=== PATIENT | female | born 1945 | race Caucasian/White ===

== ENCOUNTER 2020-10-31 18:52 | Emergency (ER) | payer MEDICARE, MEDICAID ==
[~2020-10-31] VITALS: Ht 165.1 cm; Wt 95.7 kg
--- NOTE | 2020-10-31 19:21 | NUR ---
Transfer care report to Deshaun Brown .
--- NOTE | 2020-10-31 19:51 | NUR ---
LINE ESTABLISHED RF 20G, BLOOD WORK COLLECTED, SENT TO LAB.
[2020-10-31 19:57] LABS: BASOPHILS # (AUTO) 0.1 /CMM (0.0-0.2); BASOPHILS % (AUTO) 0.6 % (0.0-2.0); EOSINOPHILS % (AUTO) 1.6 % (0.0-6.0); HEMATOCRIT 41 % (33-45); HEMOGLOBIN 13.8 g/dL (11.5-14.8); LYMPHOCYTES # (AUTO) 1.6 /CMM (0.8-4.8); LYMPHOCYTES % (AUTO) 14.7 % (20.0-44.0); MEAN CORPUSCULAR HGB CONC 34 g/dl (31.0-36.0); MEAN CORPUSCULAR VOLUME 90 fL (82-100); MONOCYTES # (AUTO) 0.9 /CMM (0.1-1.30); MONOCYTES % (AUTO) 8.3 % (2.0-12.0); NEUTROPHILS # (AUTO) 7.9 /CMM (1.8-8.9); NEUTROPHILS % (AUTO) 74.8 % (43.0-81.0); PLATELET COUNT (AUTO) 271 /CMM (150-450); RED BLOOD CELL COUNT(AUTO) 4.57 MIL/uL (4.0-5.2); WHITE BLOOD COUNT (AUTO) 10.6 K/uL (4.3-11.0)
--- NOTE | 2020-10-31 20:01 | NUR ---
RADIOLOGY AT BEDSIDE
[2020-10-31 20:24] LABS: CALCIUM, SERUM 9.5 mg/dL (8.5-10.1); CARBON DIOXIDE 27 mmol/L (21-32); CHLORIDE 101 mmol/L (98-107); CREATININE 0.8 mg/dL (0.6-1.3); GLUCOSE 127 mg/dL (74-106); POTASSIUM 4.5 mmol/L (3.5-5.1); SODIUM SERUM 138 mmol/L (136-145); UREA NITROGEN, BLOOD 15 mg/dL (7-18)
[2020-10-31 20:36] LABS: ALANINE AMINOTRANSFERASE 17 U/L (12-78); ALBUMIN 4.1 g/dL (3.4-5.0); ALKALINE PHOSPHATASE 91 U/L (46-116); ASPARTATE AMINOTRANSFERASE 30 U/L (15-37); B-TYPE NATRIURETIC PEPTIDE 353 PG/ML (0-125); BILIRUBIN,DIRECT 0.1 mg/dL (0.0-0.2); BILIRUBIN,TOTAL 0.6 mg/dL (0.2-1.0); TOTAL PROTEIN, SERUM 7.8 g/dL (6.4-8.2)
[2020-10-31] MEDS ORDERED: METOPROLOL SUCCINATE 25 MG TAB.SR.24H ONE (20:57)
[2020-10-31] MEDS ORDERED: METOPROLOL SUCCINATE 25 MG TAB.SR.24H PO SCH (21:00)
[2020-10-31 21:20] VITALS: BP 131/72
--- NOTE | 2020-10-31 21:20 | NUR ---
Patient discharged to home in stable condition. Written and verbal after care instructions given. Patient verbalizes understanding of instruction. Pt provided with labs. VSS. Denies SOB and Pain. Ambulated out of ED. Picked up by family.
--- NOTE | 2020-10-31 21:20 | NUR ---
IV removed. Catheter intact and site benign. Pressure and 4x4 applied to site. No bleeding noted.
== END 2020-10-31 21:20 | disposition home or self-care (01) ==
LOC: ER 18:54
DX: I48.91 Unspecified atrial fibrillation (principal); I10 Essential (primary) hypertension
CPT/HCPCS: 36415; 71045-TC; 80048-TC; 80076-TC; 83880; 84484-TC; 85025-TC; 85730-TC

== ENCOUNTER 2021-10-11 01:13 | Emergency (ER) | payer MEDICARE, OTHER ==
[~2021-10-11] VITALS: Ht 165.1 cm; Wt 88.5 kg
--- NOTE | 2021-10-11 01:20 | NUR ---
[id number] C/O ELEVATED BP REPORTED IN THE 200S. TOOK PRESCRIBED ANTIHYPERTENSIVES QUALITY CONTROL TECH WITH MINIMAL IMPROVEMENT. PT ALERT AND ORIENTED X 4 BREATHING EVEN AND UNLABORED. PT CHANGED INTO A GOWN AND PLACED ON THE MONITOR AND PT REMAINS HYPERTENSIVE ON ASSESSMENT.
--- NOTE | 2021-10-11 01:40 | NUR ---
PT PROVIDED WITH WARM BLANKET FOR COMFORT
--- NOTE | 2021-10-11 01:40 | NUR ---
EMT AT BEDSIDE FOR EKG
--- NOTE | 2021-10-11 01:45 | NUR ---
20G IV LINE ESTABLISHED AT . PATENT AND INTACT.
[2021-10-11 02:16] LABS: BASOPHILS # (AUTO) 0.1 K/uL (0.0-0.2); BASOPHILS % (AUTO) 0.8 % (0.0-2.0); EOSINOPHILS % (AUTO) 2.9 % (0.0-6.0); HEMATOCRIT 35 % (33-45); HEMOGLOBIN 11.9 g/dL (11.5-14.8); LYMPHOCYTES # (AUTO) 1.4 K/uL (0.8-4.8); LYMPHOCYTES % (AUTO) 19.3 % (20.0-44.0); MEAN CORPUSCULAR HGB CONC 34 g/dl (31.0-36.0); MEAN CORPUSCULAR VOLUME 89 fL (82-100); MONOCYTES # (AUTO) 0.6 K/uL (0.1-1.30); MONOCYTES % (AUTO) 8.5 % (2.0-12.0); NEUTROPHILS # (AUTO) 5.1 K/uL (1.8-8.9); NEUTROPHILS % (AUTO) 68.5 % (43.0-81.0); PLATELET COUNT (AUTO) 216 K/uL (150-450); RED BLOOD CELL COUNT(AUTO) 3.96 MIL/uL (4.0-5.2); WHITE BLOOD COUNT (AUTO) 7.5 K/uL (4.3-11.0)
[2021-10-11] MEDS ORDERED: hydrALAZINE HCL IV 20 MG VIAL IV ONE (02:30)
[2021-10-11] MEDS ORDERED: hydrALAZINE HCL IV 20 MG VIAL ONE ×2 (02:36→02:37)
[2021-10-11 04:38] LABS: CALCIUM, SERUM 8.8 mg/dL (8.5-10.1); CARBON DIOXIDE 25 mmol/L (21-32); CHLORIDE 102 mmol/L (98-107); CREATININE 0.7 mg/dL (0.6-1.3); GLUCOSE 128 mg/dL (74-106); POTASSIUM 3.9 mmol/L (3.5-5.1); SODIUM SERUM 136 mmol/L (136-145); UREA NITROGEN, BLOOD 17 mg/dL (7-18)
--- NOTE | 2021-10-11 05:01 | NUR ---
CALLED GIANA FOR IMAGING READ
[2021-10-11] MEDS ORDERED: ACETAMINOPHEN 325 MG TABLET PO ONE (05:30)
[2021-10-11] MEDS ORDERED: KETOROLAC TROMETHAMINE INJ 30 MG/ML VIAL IV ONE (05:30)
[2021-10-11] MEDS ORDERED: KETOROLAC TROMETHAMINE 15 MG/ML VIAL ONE (05:36)
[2021-10-11] MEDS ORDERED: ACETAMINOPHEN 325 MG TABLET ONE (05:37)
--- NOTE | 2021-10-11 06:51 | NUR ---
Patient discharged to home in stable condition. Written and verbal after care instructions given. Patient verbalizes understanding of instruction. IV line discontinued and 2x2 and gentle pressure applied to site without incident.
[2021-10-11 06:54] VITALS: BP 141/55
== END 2021-10-11 07:18 | disposition home or self-care (01) ==
LOC: ER 01:15
DX: I10 Essential (primary) hypertension (principal); R51.9 Headache, unspecified; M19.90 Unspecified osteoarthritis, unspecified site; Z88.0 Allergy status to penicillin; Z88.8 Allergy status to other drugs, medicaments and biological substances; Z60.2 Problems related to living alone
CPT/HCPCS: 36415; 70450; 71045; 80048; 84484; 85025; 93005 ×2; 96374; 96375; 99285; J0360 ×2; J1885

== ENCOUNTER 2021-11-04 23:39 | Inpatient (IN) | payer MEDICARE, OTHER ==
[~2021-11-04] VITALS: Ht 165.1 cm; Wt 98.0 kg
--- NOTE | 2021-11-05 00:17 | NUR ---
[id number]. MID STERNAL PRESSURE NON RADIATING X 1500 FEELING SOB W/ COUGH. PATIENT ALERT AND ORIENTED X3. AMBULATORY WITH NON LABORED BREATHING. PATIENT IN BED 04 ON MONITOR AND POX.
--- NOTE | 2021-11-05 00:20 | NUR ---
AMILCAR CARBALLO AT BEDSIDE FOR EKG
--- NOTE | 2021-11-05 00:30 | NUR ---
COVID SWAB COLLECETED AND SENT TO LAB
--- NOTE | 2021-11-05 00:54 | NUR ---
XRAY AT BEDSIDE
[2021-11-05 01:13] LABS: BASOPHILS % (AUTO) 0.7 % (0.0-2.0); EOSINOPHILS % (AUTO) 2.8 % (0.0-6.0); HEMATOCRIT 37 % (33-45); HEMOGLOBIN 12.1 g/dL (11.5-14.8); LYMPHOCYTES # (AUTO) 1.3 K/uL (0.8-4.8); LYMPHOCYTES % (AUTO) 20.7 % (20.0-44.0); MEAN CORPUSCULAR HGB CONC 33 g/dl (31.0-36.0); MEAN CORPUSCULAR VOLUME 91 fL (82-100); MONOCYTES # (AUTO) 0.4 K/uL (0.1-1.30); MONOCYTES % (AUTO) 6.2 % (2.0-12.0); NEUTROPHILS # (AUTO) 4.4 K/uL (1.8-8.9); NEUTROPHILS % (AUTO) 69.6 % (43.0-81.0); PLATELET COUNT (AUTO) 238 K/uL (150-450); RED BLOOD CELL COUNT(AUTO) 4.06 MIL/uL (4.0-5.2); WHITE BLOOD COUNT (AUTO) 6.3 K/uL (4.3-11.0)
[2021-11-05 02:09] LABS: ALANINE AMINOTRANSFERASE 34 U/L (12-78); ALBUMIN 3.9 g/dL (3.4-5.0); ALKALINE PHOSPHATASE 69 U/L (46-116); ASPARTATE AMINOTRANSFERASE 25 U/L (15-37); BILIRUBIN,DIRECT 0.2 mg/dL (0.0-0.2); BILIRUBIN,TOTAL 0.6 mg/dL (0.2-1.0); CALCIUM, SERUM 8.7 mg/dL (8.5-10.1); CARBON DIOXIDE 25 mmol/L (21-32); CHLORIDE 103 mmol/L (98-107); CREATININE 0.9 mg/dL (0.6-1.3); GLUCOSE 124 mg/dL (74-106); POTASSIUM 3.9 mmol/L (3.5-5.1); SODIUM SERUM 136 mmol/L (136-145); TOTAL PROTEIN, SERUM 7.5 g/dL (6.4-8.2); UREA NITROGEN, BLOOD 12 mg/dL (7-18)
--- NOTE | 2021-11-05 02:10 | NUR ---
PT AMBULATED TO BATHROOM, STEADY GAIT NOTED
--- NOTE | 2021-11-05 02:18 | NUR ---
PT BACK IN ROOM, RECONNECTED TO MONITOR. RESTING COMFORTABLY
[2021-11-05] MEDS ORDERED: ASPIRIN 325 MG TABLET PO ONE (03:00)
[2021-11-05] MEDS ORDERED: ASPIRIN 325 MG TABLET ONE (03:10)
--- NOTE | 2021-11-05 04:03 | NUR ---
REPORT GIVEN TO NURY MCKEE FOR NICOLE
[2021-11-05 04:14] VITALS: BP 169/62
--- NOTE | 2021-11-05 04:33 | NUR ---
concreting supervisor notes Received Pt from RAFI Pinzon ER nurse. Pt arrived at the unit with ACLS protocol. Pt is alert and orientedX4. On room air. No SOB. No S/S of distress noted. Pt is able to ambulates with a steady gait. IV site at R hand# 20 is clean, intact, flushes well and SL. Tele monitor showed SR hr at 67. Oriented Pt to the room and the use of call light. Pt verbalize understanding. Safety precautions is maintained. Bed at low position, brakes locked, bed alarm is on, hob elevated, side rails upX2 and call light is within reach. Will continue to monitor. Addendum: 11/05/21 at 0708 by NURY REZA RN Belonging's was checked by ZULLY Donahue and signed by Pt.
[2021-11-05 04:40] VITALS: BP 169/62
--- NOTE | 2021-11-05 04:45 | NUR ---
RN notes During skin assessment noted left and right arm bruises, small upper R chest bruise. Pt refused to finished skin assesment. Pt refused skin pictures. explained risks and benefits. Pt stated " I have very sensitive skin and i'm taking blood thinner. No picture! I'm fine." Charge nurse is aware and informed. Will continue to monitor.
[2021-11-05] MEDS ORDERED: AZIL80TA PO (04:56)
[2021-11-05] MEDS ORDERED: LORA-259 PO (04:56)
[2021-11-05] MEDS ORDERED: AMIO200T5 PO (04:56)
[2021-11-05] MEDS ORDERED: HYDR-4076 PO (04:56)
[2021-11-05] MEDS ORDERED: PANT40TA49 PO (04:56)
[2021-11-05] MEDS ORDERED: METO-357 PO (04:56)
[2021-11-05] MEDS ORDERED: HYDR25TA4 PO (04:56)
[2021-11-05] MEDS ORDERED: ROSU10TA2 PO (04:56)
[2021-11-05] MEDS ORDERED: APIX5TAB4 PO (05:05)
[2021-11-05] MEDS ORDERED: NITR0.4T48 SL (05:05)
[2021-11-05] MEDS ORDERED: AMLO-213 PO (05:05)
[2021-11-05] MEDS ORDERED: ISOS30TA86 PO (05:05)
--- NOTE | 2021-11-05 05:45 | NUR ---
RN notes Informed and notified Dr. Venegas regarding Pt's BP. 169/62 and HR 66. awaiting for orders. charge nurse is aware and informed.
[2021-11-05] MEDS ORDERED: MAG HYDROX/AL HYDROX/SIMETH 30 ML UDC PO PRN (06:00)
[2021-11-05] MEDS ORDERED: ENOXAPARIN SODIUM 40 MG/0.4 ML DISP.SYRIN SQ SCH (06:00)
[2021-11-05] MEDS ORDERED: ZOLPIDEM TARTRATE 5 MG TABLET PO PRN (06:00)
[2021-11-05] MEDS ORDERED: Z GUARD REMEDY 4 OZ OINT TP PRN (06:00)
[2021-11-05] MEDS ORDERED: HYDROCODONE/APAP 5/325MG TABLET PO PRN (06:00)
[2021-11-05] MEDS ORDERED: MORPHINE SULFATE INJ 2 MG/ML DISP.SYRIN IV PRN (06:00)
[2021-11-05] MEDS ORDERED: ACETAMINOPHEN 325 MG TABLET PO PRN (06:00)
[2021-11-05] MEDS ORDERED: MAGNESIUM HYDROXIDE 30 ML UDC PO PRN (06:00)
[2021-11-05] MEDS ORDERED: ONDANSETRON HCL/PF 4 MG/2 ML VIAL IVP PRN (06:00)
--- NOTE | 2021-11-05 06:45 | NUR ---
RN notes Received ordered from Dr. Venegas for hydralazine 25 mg/po/one time for BP 169/62. order carried out.
[2021-11-05] MEDS ORDERED: hydrALAZINE HCL 25 MG TABLET PO ONE (07:00)
--- NOTE | 2021-11-05 07:00 | NUR ---
RN closing notes Pt is resting in bed comfortably. Pt is alert and orientedx4. No SOB. No S/S of distress noted. IV site at R hand# 20 is clean, intact and SL. Tele monitor showed Sr hr at 65. safety precautions is maintained. all needs met and attended. bed at low position, brakes locked, side rails upX2, hob elevated and call light is within reach. Will endorse to am nurse for NICOLE.
[2021-11-05] MEDS: PANTOPRAZOLE 40 MG TABLET.DR PO SCH (07:04)
--- NOTE | 2021-11-05 07:25 | NUR ---
GAMBLING COUNSELLOR OPENING NOTES RECEIVED PATIENT SITTING IN BED, AWAKE, A/O X4, NO SIGNS OF ACUTE DISTRESS NOTED. ON ROOM AIR, NO SOB NOTED. NOTED WITH OCCASIONAL COUGH. DENIES ANY PAIN OR DISCOMFORT AT THIS TIME. ON TELE MONITOR SHOWING SR @68, NO SIGNS OF CARDIAC DISTRESS NOTED. WITH IV ACCESS ON RIGHT HAND #20G, INTACT AND PATENT, SALINE LOCKED. SAFETY MEASURES IN PLACE. BED IN LOWEST LOCKED POSITION, SR UP X1, CALL LIGHT PLACED WITHIN EASY REACH. WILL CONTINUE TO MONITOR PATIENT.
[2021-11-05] MEDS ORDERED: PANTOPRAZOLE 40 MG TABLET.DR PO SCH (07:30)
[2021-11-05 08:00] VITALS: BP 162/60
[2021-11-05] MEDS ORDERED: NITROGLYCERIN 0.4 MG/TAB BOTTLE SL PRN (08:00)
[2021-11-05] MEDS ORDERED: ASPIRIN 81 MG TAB.CHEW PO SCH (09:00)
[2021-11-05] MEDS: METOPROLOL SUCCINATE 50 MG TAB.SR.24H PO SCH (09:00)
[2021-11-05] MEDS: ISOSORBIDE MONONITRATE (30MG) 30 MG TAB.SR.24H PO SCH (09:00)
[2021-11-05] MEDS ORDERED: GUAIFENESIN 300 MG/15 ML UDC PO PRN (09:00)
[2021-11-05] MEDS: AMLODIPINE BESYLATE 10 MG TABLET PO SCH (09:00)
[2021-11-05] MEDS ORDERED: Medication Not On Formulary EA (Azilsartan Medoxomil (Edarbi) 1 TAB) PO SCH (09:00)
[2021-11-05] MEDS: AMIODARONE HCL 200 MG TABLET PO SCH (09:01)
[2021-11-05] MEDS: HYDROCHLOROTHIAZIDE 25 MG TABLET PO SCH (09:01)
[2021-11-05] MEDS: hydrALAZINE HCL 25 MG TABLET PO SCH ×3 (09:01→17:00)
[2021-11-05 12:00] VITALS: BP 120/50
[2021-11-05 16:00] VITALS: BP 109/50
[2021-11-05] MEDS: APIXABAN 5 MG TABLET PO SCH (16:59)
[2021-11-05] MEDS ORDERED: CLOP75TA15 PO (18:24)
[2021-11-05] MEDS ORDERED: CHOL500052 PO (18:24)
--- NOTE | 2021-11-05 18:56 | NUR ---
POT LINER CLOSING NOTES PATIENT RESTING IN BED, AWAKE, A/O X4, NO SIGNS OF ACUTE DISTRESS NOTED. REMAINS ON ROOM AIR, NO SOB NOTED. ON TELE MONITOR SHOWING SR @60, NO SIGNS OF CARDIAC DISTRESS NOTED. IV ACCESS ON RIGHT HAND #20G, INTACT AND PATENT, SALINE LOCKED. ALL DUE MEDS GIVEN, TAKEN WELL. SAFETY MEASURES MAINTAINED. BED IN LOWEST AND LOCKED POSITION, SR UP, CALL LIGHT PLACED WITHIN EASY REACH. WILL ENDORSE TO NEXT SHIFT FOR CONTINUITY OF CARE.
--- NOTE | 2021-11-05 19:30 | NUR ---
RN NOTES RECEIVED PATIENT AWAKE ON BED, A/OX4, NEPALI/MONTENEGRIN SPEAKING, SB ON TELE MONITOR HR-58, DENIES PAIN, NO SOB, CALL LIGHT WITHIN REACH, [id number], WILL CONTINUE TO MONITOR
[2021-11-05 20:00] VITALS: BP 137/59
[2021-11-05] MEDS ORDERED: ATORVASTATIN 10 MG TABLET PO SCH (22:00)
--- NOTE | 2021-11-05 22:30 | NUR ---
RN NOTES NEW IV ACCESS INSERTED IN THE LEFT FOREARM GAUGE 22
[2021-11-06] VITALS: BP 139/64
[2021-11-06 04:00] VITALS: BP 138/51
--- NOTE | 2021-11-06 06:22 | NUR ---
RN NOTES SLEEPING BUT AROUSABLE, NOT IN DISTRESS, DENIES PAIN, MORNING CRE RENDERED, CALL LIGHT WITHIN REACH, [id number], PT. NEEDS ATTENDED
[2021-11-06 06:50] LABS: BASOPHILS % (AUTO) 0.6 % (0.0-2.0); EOSINOPHILS % (AUTO) 2.6 % (0.0-6.0); HEMATOCRIT 32 % (33-45); HEMOGLOBIN 10.9 g/dL (11.5-14.8); LYMPHOCYTES # (AUTO) 1.7 K/uL (0.8-4.8); LYMPHOCYTES % (AUTO) 25.2 % (20.0-44.0); MEAN CORPUSCULAR HGB CONC 34 g/dl (31.0-36.0); MEAN CORPUSCULAR VOLUME 89 fL (82-100); MONOCYTES # (AUTO) 0.5 K/uL (0.1-1.30); NEUTROPHILS # (AUTO) 4.5 K/uL (1.8-8.9); NEUTROPHILS % (AUTO) 64.6 % (43.0-81.0); PLATELET COUNT (AUTO) 214 K/uL (150-450); RED BLOOD CELL COUNT(AUTO) 3.61 MIL/uL (4.0-5.2); WHITE BLOOD COUNT (AUTO) 6.9 K/uL (4.3-11.0)
[2021-11-06 07:00] LABS: CALCIUM, SERUM 8.5 mg/dL (8.5-10.1); CREATININE 0.9 mg/dL (0.6-1.3); MAGNESIUM 2.2 mg/dL (1.8-2.4); PHOSPHORUS 3.4 mg/dL (2.5-4.9); POTASSIUM 3.8 mmol/L (3.5-5.1)
[2021-11-06 07:10] LABS: THYROID STIMULATING HORMONE 4.8 uIU/mL (0.358-3.74)
--- NOTE | 2021-11-06 07:26 | NUR ---
MULTI MEDIA SPECIALIST OPENING NOTES RECEIVED PATIENT SITTING IN BED, AWAKE, A/O X4, NO SIGNS OF ACUTE DISTRESS NOTED. STABLE ON ROOM AIR, NO SOB NOTED. DENIES ANY PAIN OR DISCOMFORT AT THIS TIME. ON TELE MONITOR CURRENTLY SHOWING SR @60, NO SIGNS OF CARDIAC DISTRESS NOTED. WITH IV ACCESS ON LEFT FOREARM #22G, INTACT AND PATENT, SALINE LOCKED. SAFETY MEASURES IN PLACE. BED IN LOWEST LOCKED POSITION, SR UP X1, CALL LIGHT PLACED WITHIN EASY REACH. WILL CONTINUE TO MONITOR PATIENT.
[2021-11-06 08:00] VITALS: BP 134/66
[2021-11-06] MEDS: PANTOPRAZOLE 40 MG TABLET.DR PO SCH (08:07)
[2021-11-06] MEDS: METOPROLOL SUCCINATE 50 MG TAB.SR.24H PO SCH (08:55)
[2021-11-06] MEDS: HYDROCHLOROTHIAZIDE 25 MG TABLET PO SCH (08:56)
[2021-11-06] MEDS: ISOSORBIDE MONONITRATE (30MG) 30 MG TAB.SR.24H PO SCH (08:56)
[2021-11-06] MEDS: hydrALAZINE HCL 25 MG TABLET PO SCH ×3 (08:56→16:39)
[2021-11-06] MEDS: AMLODIPINE BESYLATE 10 MG TABLET PO SCH (08:56)
[2021-11-06] MEDS: AMIODARONE HCL 200 MG TABLET PO SCH (08:57)
[2021-11-06] MEDS: APIXABAN 5 MG TABLET PO SCH ×3 (08:57→17:00)
[2021-11-06 12:00] VITALS: BP 120/53
[2021-11-06 16:00] VITALS: BP 140/58
[2021-11-06 16:39] VITALS: BP 140/58
--- NOTE | 2021-11-06 16:42 | NUR ---
RN NOTES ELIQUIS 5 MG PM DOSE WITHHELD. PATIENT FOR SCHEDULED [facility]CA TOMORROW AT [facility].
--- NOTE | 2021-11-06 18:20 | NUR ---
RN NOTES PATIENT DISCHARGED TO [facility]. PATIENT IS A/O X4, NO SIGNS OF ACUTE DISTRESS DISTRESS NOTED, VERBALLY RESPONSIVE. DISCHARGE INSTRUCTIONS PROVIDED TO PATIENT WITH VERBALIZATION OF UNDERSTANDING. ALL BELONGINGS ACCOUNTED FOR, VALUABLE FORM SIGNED BY PATIENT. IV ACCESS ON LFA KEPT, PER PATIENT BECAUSE SHE'S A HARDSTICK. REPORT GIVEN TO RAFI ALEX. PATIENT'S NIECE ARMINEH ALSO AWARE OF PATIENTS TRANSFER. PATIENT LEFT UNIT @1820 PICKED UP BY [facility]IA GURNEY, IN STABLE CONDITION. CN AWARE OF DISCHARGE.
== END 2021-11-06 18:30 | disposition short-term general hospital (02) | DRG 303 ==
LOC: ER 23:52 → TELE 11-05 04:00
PROVIDERS: ADMIT Family Medicine; ATTEND Family Medicine
DX: I25.119 Atherosclerotic heart disease of native coronary artery with unspecified angina pectoris (principal); R73.9 Hyperglycemia, unspecified; I11.9 Hypertensive heart disease without heart failure; I48.91 Unspecified atrial fibrillation; E66.9 Obesity, unspecified; I10 Essential (primary) hypertension; M19.90 Unspecified osteoarthritis, unspecified site; Z79.01 Long term (current) use of anticoagulants; R58 Hemorrhage, not elsewhere classified; Z68.35 Body mass index [BMI] 35.0-35.9, adult; R94.6 Abnormal results of thyroid function studies; Z20.822 Contact with and (suspected) exposure to COVID-19; Z95.5 Presence of coronary angioplasty implant and graft
CPT/HCPCS: 36415; 71045-TC; 80048-TC; 80061-TC; 80076-TC; 83735-TC; 84100-TC; 84443-TC; 84484-TC; 85025-TC; 85730-TC; 93307-TC; C9803; G0378; J1650

== ENCOUNTER 2024-02-04 18:24 | Inpatient (IN) | payer MEDICARE, OTHER ==
[~2024-02-04] VITALS: Ht 165.1 cm; Wt 90.9 kg
[~2024-02-04 18:24] MED LIST: AMIO200T5 PO; AMLO-213 PO; APIX5TAB4 PO; AZIL80TA PO; CHOL500052 PO; CLOP75TA15 PO; HYDR-4076 PO; HYDR25TA4 PO; ISOS30TA86 PO; LORA-259 PO; METO-357 PO; NITR0.4T48 SL; PANT40TA49 PO; ROSU10TA2 PO
[2024-02-04 18:28] VITALS: O2SAT 97
[2024-02-04] MEDS ORDERED: BENZONATATE 100 MG CAPSULE PO ONE (18:42)
[2024-02-04] MEDS: BENZONATATE 100 MG CAPSULE PO PRN (18:46)
[2024-02-04 19:20] LABS: BASOPHILS % (AUTO) 0.3 % (0.0-2.0); EOSINOPHILS # (AUTO) 0.1 K/uL (0.0-0.7); EOSINOPHILS % (AUTO) 0.5 % (0.0-6.0); HEMATOCRIT 27 % (33-45); HEMOGLOBIN 9.4 g/dL (11.5-14.8); LYMPHOCYTES # (AUTO) 0.8 K/uL (0.8-4.8); LYMPHOCYTES % (AUTO) 7.5 % (20.0-44.0); MEAN CORPUSCULAR HEMOGLOBIN 29 PG (26.0-33.0); MEAN CORPUSCULAR HGB CONC 34 g/dl (31.0-36.0); MEAN CORPUSCULAR VOLUME 85 fL (82-100); MONOCYTES # (AUTO) 0.9 K/uL (0.1-1.30); MONOCYTES % (AUTO) 9.2 % (2.0-12.0); NEUTROPHILS # (AUTO) 8.3 K/uL (1.8-8.9); NEUTROPHILS % (AUTO) 82.5 % (43.0-81.0); PLATELET COUNT (AUTO) 241 K/uL (150-450); RED BLOOD CELL COUNT(AUTO) 3.24 MIL/uL (4.0-5.2); RED CELL DISTRIBUTION WIDTH 16.2 % (11.5-15.0); WHITE BLOOD COUNT (AUTO) 10.1 K/uL (4.3-11.0)
[2024-02-04 19:47] LABS: CALCIUM, SERUM 9.1 mg/dL (8.5-10.1); CARBON DIOXIDE 27 mmol/L (21-32); CHLORIDE 96 mmol/L (98-107); CREATININE 0.7 mg/dL (0.6-1.3); GLUCOSE 143 mg/dL (74-106); POTASSIUM 3.7 mmol/L (3.5-5.1); SODIUM SERUM 132 mmol/L (136-145); UREA NITROGEN, BLOOD 10 mg/dL (7-18)
[2024-02-04 20:00] LABS: NT-PRO BNP 1572 pg/mL (0-125)
[2024-02-04] MEDS ORDERED: MAG HYDROX/AL HYDROX/SIMETH 30 ML UDC PO PRN (22:00)
[2024-02-04] MEDS ORDERED: Z GUARD REMEDY 4 OZ OINT TP PRN (22:00)
[2024-02-04] MEDS ORDERED: ACETAMINOPHEN 325 MG TABLET PO PRN (22:00)
[2024-02-04] MEDS ORDERED: MAGNESIUM HYDROXIDE 30 ML UDC PO PRN (22:00)
[2024-02-04] MEDS ORDERED: ONDANSETRON HCL/PF 4 MG/2 ML VIAL IVP PRN (22:00)
[2024-02-04 22:15] VITALS: BP 185/63; TEMP 98.1; O2SAT 95
[2024-02-04] MEDS: FUROSEMIDE 20 MG/2 ML VIAL IV ONE (22:20)
[2024-02-04] MEDS ORDERED: CEFTRIAXONE 1 G in IV D5W 50 ML IV SCH (23:30)
[2024-02-04] MEDS ORDERED: AZITHROMYCIN 250 MG TABLET PO SCH (23:30)
[2024-02-04] MEDS: FUROSEMIDE 40 MG/4 ML VIAL IV ONE (23:36)
[2024-02-04] MEDS ORDERED: LEVOFLOXACIN 500 MG /D5W 100ML 100 ML IV ONE (23:40)
[2024-02-04] MEDS: LEVOFLOXACIN 500 MG /D5W 100ML 500 MG in PREMIX 1 EA IV SCH (23:43)
[2024-02-05] VITALS: BP 185/50; TEMP 98.1; O2SAT 97
[2024-02-05 04:00] VITALS: BP 136/48; TEMP 97.8; O2SAT 95
[2024-02-05 06:49] LABS: BASOPHILS % (AUTO) 0.2 % (0.0-2.0); EOSINOPHILS % (AUTO) 0.2 % (0.0-6.0); HEMATOCRIT 26 % (33-45); HEMOGLOBIN 9.1 g/dL (11.5-14.8); LYMPHOCYTES # (AUTO) 0.9 K/uL (0.8-4.8); LYMPHOCYTES % (AUTO) 9.4 % (20.0-44.0); MEAN CORPUSCULAR HEMOGLOBIN 29 PG (26.0-33.0); MEAN CORPUSCULAR HGB CONC 35 g/dl (31.0-36.0); MEAN CORPUSCULAR VOLUME 84 fL (82-100); MONOCYTES # (AUTO) 1.1 K/uL (0.1-1.30); MONOCYTES % (AUTO) 10.9 % (2.0-12.0); NEUTROPHILS # (AUTO) 7.6 K/uL (1.8-8.9); NEUTROPHILS % (AUTO) 79.3 % (43.0-81.0); PLATELET COUNT (AUTO) 252 K/uL (150-450); RED BLOOD CELL COUNT(AUTO) 3.12 MIL/uL (4.0-5.2); RED CELL DISTRIBUTION WIDTH 15.5 % (11.5-15.0); WHITE BLOOD COUNT (AUTO) 9.6 K/uL (4.3-11.0)
[2024-02-05 07:02] LABS: CALCIUM, SERUM 8.9 mg/dL (8.5-10.1); CARBON DIOXIDE 29 mmol/L (21-32); CHLORIDE 96 mmol/L (98-107); CREATININE 0.8 mg/dL (0.6-1.3); GLUCOSE 114 mg/dL (74-106); MAGNESIUM 1.9 mg/dL (1.8-2.4); PHOSPHORUS 3.3 mg/dL (2.5-4.9); POTASSIUM 3.2 mmol/L (3.5-5.1); SODIUM SERUM 136 mmol/L (136-145); UREA NITROGEN, BLOOD 7 mg/dL (7-18)
[2024-02-05 08:00] VITALS: BP 168/64; TEMP 98.8; O2SAT 94
[2024-02-05] MEDS ORDERED: CLON0.1T PO (08:36)
[2024-02-05] MEDS ORDERED: FURO40TA5 PO (08:36)
[2024-02-05] MEDS ORDERED: LORA10TA7 PO (08:36)
[2024-02-05] MEDS ORDERED: CARV6.252 PO (08:36)
[2024-02-05] MEDS ORDERED: RIOC1TAB PO (08:36)
[2024-02-05] MEDS ORDERED: CYCL30DR EACHEYE (08:36)
[2024-02-05] MEDS ORDERED: PANTOPRAZOLE 40 MG VIAL IV SCH (09:00)
[2024-02-05] MEDS ORDERED: IV NS 0.9% 250 ML IV ONE (09:34)
[2024-02-05] MEDS ORDERED: IOHEXOL-350 100 ML VIAL IV ONE (09:34)
[2024-02-05] MEDS: FUROSEMIDE 40 MG/4 ML VIAL IV SCH (10:08)
[2024-02-05] MEDS: AMLODIPINE BESYLATE 10 MG TABLET PO SCH (10:11)
[2024-02-05] MEDS: LORAZEPAM 1 MG TABLET PO SCH (10:12)
[2024-02-05] MEDS: hydrALAZINE HCL 25 MG TABLET PO SCH (10:12)
[2024-02-05] MEDS: CLOPIDOGREL BISULFATE 75 MG TABLET PO SCH (10:13)
[2024-02-05] MEDS: HYDROCHLOROTHIAZIDE 25 MG TABLET PO SCH (10:13)
[2024-02-05] MEDS: ISOSORBIDE MONONITRATE (30MG) 30 MG TAB.SR.24H PO SCH (10:13)
[2024-02-05] MEDS: METOPROLOL SUCCINATE 50 MG TAB.SR.24H PO SCH (10:14)
[2024-02-05] MEDS: AMIODARONE HCL 200 MG TABLET PO SCH (10:15)
[2024-02-05] MEDS: PANTOPRAZOLE 40 MG TABLET.DR PO SCH (10:15)
[2024-02-05] MEDS: ATORVASTATIN 40 MG TABLET PO SCH (10:15)
[2024-02-05] MEDS: LOSARTAN POTASSIUM 50 MG TABLET PO SCH (10:16)
[2024-02-05] MEDS: APIXABAN 5 MG TABLET PO SCH (10:21)
[2024-02-05] MEDS: AZITHROMYCIN 500 MG in IV D5W 250 ML IV SCH (10:45)
[2024-02-05] MEDS: POTASSIUM CHLORIDE 20 MEQ TAB.PRT.SR PO SCH (11:00)
[2024-02-05 12:00] VITALS: BP 115/50; TEMP 98.2; O2SAT 98
[2024-02-05] MEDS: CEFTRIAXONE 1 G in IV D5W 50 ML IV SCH (12:10)
[2024-02-05 12:18] LABS: OCCULT BLOOD STOOL NEGATIVE (NEGATIVE)
[2024-02-05 16:00] VITALS: BP 116/45; TEMP 98.2; O2SAT 94
[2024-02-05] MEDS: POLYVINYL ALCOHOL 15 ML BOTTLE EACHEYE SCH (16:43)
[2024-02-05 20:08] VITALS: BP 122/45; TEMP 97.7; O2SAT 95
[2024-02-05] MEDS: HEPARIN SODIUM, PORCINE 5000 UNITS/1 ML VIAL SQ SCH (21:44)
[2024-02-06 00:08] VITALS: BP 120/60; TEMP 98.1; O2SAT 93
[2024-02-06 04:03] VITALS: BP 120/70; TEMP 98.1; O2SAT 93
[2024-02-06 06:53] LABS: BASOPHILS % (AUTO) 0.4 % (0.0-2.0); EOSINOPHILS # (AUTO) 0.2 K/uL (0.0-0.7); EOSINOPHILS % (AUTO) 2.4 % (0.0-6.0); HEMATOCRIT 30 % (33-45); HEMOGLOBIN 10.1 g/dL (11.5-14.8); LYMPHOCYTES # (AUTO) 1.4 K/uL (0.8-4.8); LYMPHOCYTES % (AUTO) 17.2 % (20.0-44.0); MEAN CORPUSCULAR HEMOGLOBIN 29 PG (26.0-33.0); MEAN CORPUSCULAR HGB CONC 34 g/dl (31.0-36.0); MEAN CORPUSCULAR VOLUME 85 fL (82-100); MONOCYTES # (AUTO) 0.8 K/uL (0.1-1.30); MONOCYTES % (AUTO) 10.6 % (2.0-12.0); NEUTROPHILS # (AUTO) 5.5 K/uL (1.8-8.9); NEUTROPHILS % (AUTO) 69.4 % (43.0-81.0); PLATELET COUNT (AUTO) 284 K/uL (150-450); RED BLOOD CELL COUNT(AUTO) 3.51 MIL/uL (4.0-5.2); RED CELL DISTRIBUTION WIDTH 15.4 % (11.5-15.0); WHITE BLOOD COUNT (AUTO) 7.9 K/uL (4.3-11.0)
[2024-02-06 07:30] VITALS: BP 139/42; TEMP 97.9; O2SAT 94
[2024-02-06 07:42] LABS: CALCIUM, SERUM 9.1 mg/dL (8.5-10.1); CREATININE 0.9 mg/dL (0.6-1.3); MAGNESIUM 2.2 mg/dL (1.8-2.4); PHOSPHORUS 4.1 mg/dL (2.5-4.9); POTASSIUM 3.2 mmol/L (3.5-5.1)
[2024-02-06] MEDS: RIOCIGUAT 1 MG PO SCH (08:40)
[2024-02-06 08:49] LABS: IRON, SERUM 27 ug/dl (50-175); TOTAL IRON BINDING CAPACITY 264 ug/dl (250-450)
[2024-02-06 09:02] LABS: FERRITIN 164 ng/mL (8-388)
[2024-02-06] MEDS: LOSARTAN POTASSIUM 50 MG TABLET PO SCH (09:38)
[2024-02-06] MEDS ORDERED: DOXY-326 PO (10:02)
[2024-02-06] MEDS: POTASSIUM CHLORIDE 20 MEQ TAB.PRT.SR PO SCH (10:04)
[2024-02-06 13:00] VITALS: BP 98/45
[2024-02-06] MEDS: SOD FERRIC GLUC 125 MG in IV NS 0.9% 100 ML IV SCH (14:18)
[2024-02-09] MEDS ORDERED: ERGOCALCIFEROL (VITAMIN D 2) 50,000 UNIT CAPSULE PO SCH (12:25)
== END 2024-02-06 15:56 | disposition home health service (06) | DRG 291 ==
LOC: ER 18:39 → TELE 21:45
PROVIDERS: ATTEND Internal Medicine
DX: I11.0 Hypertensive heart disease with heart failure (principal); I50.33 Acute on chronic diastolic (congestive) heart failure; J18.9 Pneumonia, unspecified organism; J96.01 Acute respiratory failure with hypoxia; E87.1 Hypo-osmolality and hyponatremia; I48.91 Unspecified atrial fibrillation; I25.10 Atherosclerotic heart disease of native coronary artery without angina pectoris; D64.9 Anemia, unspecified; E78.5 Hyperlipidemia, unspecified; Z79.01 Long term (current) use of anticoagulants; Z95.5 Presence of coronary angioplasty implant and graft; I27.20 Pulmonary hypertension, unspecified; E66.01 Morbid (severe) obesity due to excess calories; G47.33 Obstructive sleep apnea (adult) (pediatric); Z68.33 Body mass index [BMI] 33.0-33.9, adult; Z88.0 Allergy status to penicillin; Z20.822 Contact with and (suspected) exposure to COVID-19
CPT/HCPCS: 36415; 71045-TC; 80048-TC; 82272-TC; 82728-TC; 83540-TC; 83735-TC; 83880; 84100-TC; 84484-TC; 85025-TC; 93970-TC; 97112-TC; 97116-TC; A4216; A4223; G0378; J0456; J0696; J1644; J1940; J1956; J2916; J7030; J7050; J7060; Q9967

== ENCOUNTER 2024-06-12 23:36 | Inpatient (IN) | payer MEDICARE, OTHER ==
[~2024-06-12] VITALS: Ht 165.1 cm; Wt 86.9 kg
[~2024-06-12 23:36] MED LIST changes: -AMLO-213 PO; -APIX5TAB4 PO; +CARV6.252 PO; +CLON0.1T PO; +CYCL30DR EACHEYE; +DOXY-326 PO; +FURO40TA5 PO; -ISOS30TA86 PO; +LORA10TA7 PO; -METO-357 PO; +RIOC1TAB PO
[2024-06-12] MEDS ORDERED: ASPIRIN 325 MG TABLET ONE (23:52)
[2024-06-13] MEDS: ASPIRIN 325 MG TABLET PO ONE
[2024-06-13] MEDS: NITROGLYCERIN 30 GM TUBE TP SCH
[2024-06-13] MEDS ORDERED: NITROGLYCERIN PACKET 1 GM PACKET ONE (00:12)
[2024-06-13 00:19] LABS: BASOPHILS % (AUTO) 0.6 % (0.0-2.0); EOSINOPHILS # (AUTO) 0.1 K/uL (0.0-0.7); EOSINOPHILS % (AUTO) 1.8 % (0.0-6.0); HEMATOCRIT 32 % (33-45); HEMOGLOBIN 10.8 g/dL (11.5-14.8); LYMPHOCYTES # (AUTO) 1.5 K/uL (0.8-4.8); LYMPHOCYTES % (AUTO) 19.2 % (20.0-44.0); MEAN CORPUSCULAR HEMOGLOBIN 29 PG (26.0-33.0); MEAN CORPUSCULAR HGB CONC 34 g/dl (31.0-36.0); MEAN CORPUSCULAR VOLUME 86 fL (82-100); MONOCYTES # (AUTO) 0.7 K/uL (0.1-1.30); MONOCYTES % (AUTO) 8.9 % (2.0-12.0); NEUTROPHILS # (AUTO) 5.3 K/uL (1.8-8.9); NEUTROPHILS % (AUTO) 69.5 % (43.0-81.0); PLATELET COUNT (AUTO) 234 K/uL (150-450); RED BLOOD CELL COUNT(AUTO) 3.72 MIL/uL (4.0-5.2); RED CELL DISTRIBUTION WIDTH 15.8 % (11.5-15.0); WHITE BLOOD COUNT (AUTO) 7.6 K/uL (4.3-11.0)
[2024-06-13 00:36] LABS: INR 1.02 (0.91-1.10); PROTHROMBIN TIME 10.8 SECS (9.2-11.1)
[2024-06-13 00:45] LABS: CALCIUM, SERUM 8.6 mg/dL (8.5-10.1); CARBON DIOXIDE 25 mmol/L (21-32); CHLORIDE 105 mmol/L (98-107); CREATININE 0.9 mg/dL (0.6-1.3); GLUCOSE 147 mg/dL (74-106); POTASSIUM 3.8 mmol/L (3.5-5.1); SODIUM SERUM 140 mmol/L (136-145); UREA NITROGEN, BLOOD 20 mg/dL (7-18)
[2024-06-13 01:00] LABS: ALANINE AMINOTRANSFERASE 38 U/L (12-78); ALBUMIN 3.5 g/dL (3.4-5.0); ALKALINE PHOSPHATASE 68 U/L (46-116); ASPARTATE AMINOTRANSFERASE 33 U/L (15-37); BILIRUBIN,DIRECT 0.2 mg/dL (0.0-0.2); BILIRUBIN,TOTAL 0.4 mg/dL (0.2-1.0); NT-PRO BNP 334 pg/mL (0-125); TOTAL PROTEIN, SERUM 6.4 g/dL (6.4-8.2)
[2024-06-13] MEDS ORDERED: ONDANSETRON HCL/PF 4 MG/2 ML VIAL IVP PRN (03:30)
[2024-06-13] MEDS ORDERED: MAGNESIUM HYDROXIDE 30 ML UDC PO PRN (03:30)
[2024-06-13] MEDS ORDERED: ZOLPIDEM TARTRATE 5 MG TABLET PO PRN (03:30)
[2024-06-13] MEDS ORDERED: Z GUARD REMEDY 4 OZ OINT TP PRN (03:30)
[2024-06-13] MEDS ORDERED: MAG HYDROX/AL HYDROX/SIMETH 30 ML UDC PO PRN (03:30)
[2024-06-13] MEDS ORDERED: ACETAMINOPHEN 325 MG TABLET ONE (07:57)
[2024-06-13] MEDS: ACETAMINOPHEN 325 MG TABLET PO PRN (08:00)
[2024-06-13] MEDS ORDERED: ERGOCALCIFEROL (VITAMIN D 2) 50,000 UNIT CAPSULE PO SCH (08:30)
[2024-06-13 08:35] VITALS: BP 156/55; TEMP 97.5; O2SAT 97
[2024-06-13] MEDS: hydrALAZINE HCL 25 MG TABLET PO SCH ×2 (08:35→09:00)
[2024-06-13] MEDS: AMIODARONE HCL 200 MG TABLET PO SCH (08:35)
[2024-06-13] MEDS: CLOPIDOGREL BISULFATE 75 MG TABLET PO SCH (08:37)
[2024-06-13] MEDS: FUROSEMIDE 40 MG TABLET PO SCH (09:00)
[2024-06-13] MEDS: CARVEDILOL 6.25 MG TABLET PO SCH (09:00)
[2024-06-13] MEDS: LOSARTAN POTASSIUM 50 MG TABLET PO SCH (09:00)
[2024-06-13] MEDS ORDERED: Medication Not On Formulary EA (Cyclosporine (Restasis) 1 DROP) EACHEYE SCH (09:00)
[2024-06-13] MEDS: HYDROCHLOROTHIAZIDE 25 MG TABLET PO SCH (09:00)
[2024-06-13] MEDS: PANTOPRAZOLE 40 MG TABLET.DR PO SCH (09:11)
[2024-06-13] MEDS: ASPIRIN 81 MG TAB.CHEW PO SCH (09:11)
[2024-06-13] MEDS: ATORVASTATIN 40 MG TABLET PO SCH (09:12)
[2024-06-13 10:14] LABS: THYROID STIMULATING HORMONE 4.11 uIU/mL (0.358-3.74)
[2024-06-13] MEDS: IBUPROFEN 400 MG TABLET PO PRN (11:35)
[2024-06-13] MEDS ORDERED: CT SWABBABLE VALVE TRANS SET 1 EA INFUS.SET MC ONE (14:13)
[2024-06-13] MEDS ORDERED: IV NS 0.9% 250 ML IV ONE ×2 (14:13→14:56)
[2024-06-13] MEDS ORDERED: IOHEXOL-350 100 ML VIAL IV ONE ×2 (14:13→14:55)
[2024-06-13] MEDS: METOPROLOL TARTRATE INJ 5 MG/5 ML AMPUL IVP STA (14:35)
[2024-06-13] MEDS: METOPROLOL TARTRATE INJ 5 MG/5 ML AMPUL IVP PRN (14:40)
[2024-06-13] MEDS ORDERED: METOPROLOL TARTRATE INJ 5 MG/5 ML AMPUL ONE ×2 (14:42→14:45)
[2024-06-13] MEDS ORDERED: NITROGLYCERIN 0.4 MG/TAB BOTTLE ONE (14:42)
[2024-06-13] MEDS ORDERED: NITROGLYCERIN 0.4 MG/TAB BOTTLE SL ONE (15:00)
[2024-06-13 16:00] VITALS: BP 130/45; TEMP 97.5; O2SAT 97
[2024-06-13 20:00] VITALS: BP 124/54; TEMP 97.5; O2SAT 96
[2024-06-13 20:18] VITALS: BP 124/54; TEMP 97.5; O2SAT 96
[2024-06-14] VITALS (8 sets, daily range): BP systolic 126–145; BP diastolic 41–64; TEMP 97.5–98.4; O2SAT 94–99
[2024-06-14 06:03] LABS: BASOPHILS % (AUTO) 0.4 % (0.0-2.0); EOSINOPHILS # (AUTO) 0.2 K/uL (0.0-0.7); EOSINOPHILS % (AUTO) 2.4 % (0.0-6.0); HEMATOCRIT 31 % (33-45); HEMOGLOBIN 10.4 g/dL (11.5-14.8); LYMPHOCYTES # (AUTO) 1.2 K/uL (0.8-4.8); LYMPHOCYTES % (AUTO) 15.8 % (20.0-44.0); MEAN CORPUSCULAR HEMOGLOBIN 29 PG (26.0-33.0); MEAN CORPUSCULAR HGB CONC 34 g/dl (31.0-36.0); MEAN CORPUSCULAR VOLUME 86 fL (82-100); MONOCYTES # (AUTO) 0.7 K/uL (0.1-1.30); MONOCYTES % (AUTO) 9.4 % (2.0-12.0); NEUTROPHILS # (AUTO) 5.3 K/uL (1.8-8.9); PLATELET COUNT (AUTO) 223 K/uL (150-450); RED BLOOD CELL COUNT(AUTO) 3.58 MIL/uL (4.0-5.2); RED CELL DISTRIBUTION WIDTH 15.5 % (11.5-15.0); WHITE BLOOD COUNT (AUTO) 7.3 K/uL (4.3-11.0)
[2024-06-14 06:18] LABS: CHOLESTEROL 124 mg/dL (<200); HDL CHOLESTEROL 93 mg/dL (40-60); LDL 24 mg/dL (0-99); TRIGLYCERIDES 37 mg/dL (30-150)
[2024-06-14 06:28] LABS: CALCIUM, SERUM 8.5 mg/dL (8.5-10.1); CARBON DIOXIDE 27 mmol/L (21-32); CHLORIDE 108 mmol/L (98-107); CREATININE 0.8 mg/dL (0.6-1.3); GLUCOSE 97 mg/dL (74-106); MAGNESIUM 2.3 mg/dL (1.8-2.4); PHOSPHORUS 4.3 mg/dL (2.5-4.9); POTASSIUM 3.9 mmol/L (3.5-5.1); SODIUM SERUM 144 mmol/L (136-145); UREA NITROGEN, BLOOD 18 mg/dL (7-18)
[2024-06-14] MEDS: ADEMPAS 1 MG PO SCH (13:33)
== END 2024-06-14 21:40 | disposition short-term general hospital (02) | DRG 280 ==
LOC: ER 23:41 → TELE 06-13 07:29
PROVIDERS: ADMIT Student in an Organized Health Care Education/Training Program; ATTEND Student in an Organized Health Care Education/Training Program
DX: I16.0 Hypertensive urgency (principal); I50.33 Acute on chronic diastolic (congestive) heart failure; I21.A1 Myocardial infarction type 2; I48.91 Unspecified atrial fibrillation; M19.90 Unspecified osteoarthritis, unspecified site; E78.5 Hyperlipidemia, unspecified; D64.9 Anemia, unspecified; E86.0 Dehydration; I11.0 Hypertensive heart disease with heart failure; I25.10 Atherosclerotic heart disease of native coronary artery without angina pectoris; I27.20 Pulmonary hypertension, unspecified; Z88.0 Allergy status to penicillin; Z95.5 Presence of coronary angioplasty implant and graft; D50.9 Iron deficiency anemia, unspecified; Z79.02 Long term (current) use of antithrombotics/antiplatelets
CPT/HCPCS: 36415; 71045-TC; 75574; 80048-TC; 80061-TC; 80076-TC; 82728-TC; 83540-TC; 83735-TC; 83880; 84100-TC; 84439-TC; 84443-TC; 84484-TC; 85025-TC; 85730-TC; 93307-TC; G0378; J3490; J7050; Q9967

== ENCOUNTER 2024-11-14 19:38 | Emergency (ER) | payer MEDICARE, OTHER ==
[~2024-11-14] VITALS: Ht 165.1 cm; Wt 83.9 kg
[~2024-11-14 19:38] MED LIST changes: -DOXY-326 PO
[2024-11-14 19:48] VITALS: TEMP 97.7
[2024-11-14] MEDS ORDERED: hydrALAZINE HCL IV 20 MG VIAL IV ONE (20:00)
[2024-11-14] MEDS ORDERED: hydrALAZINE HCL IV 20 MG VIAL ONE (20:13)
[2024-11-14] MEDS ORDERED: SUMATRIPTAN SUCCINATE 6 MG/0.5 ML VIAL SQ ONE (20:15)
[2024-11-14] MEDS ORDERED: PROCHLORPERAZINE EDISYLATE 10 MG/2 ML VIAL ONE (20:15)
[2024-11-14 20:16] LABS: BASOPHILS % (AUTO) 0.7 % (0.0-2.0); EOSINOPHILS # (AUTO) 0.1 K/uL (0.0-0.7); EOSINOPHILS % (AUTO) 1.4 % (0.0-6.0); HEMATOCRIT 34 % (33-45); HEMOGLOBIN 11.8 g/dL (11.5-14.8); LYMPHOCYTES # (AUTO) 1.2 K/uL (0.8-4.8); LYMPHOCYTES % (AUTO) 19.5 % (20.0-44.0); MEAN CORPUSCULAR HEMOGLOBIN 29 PG (26.0-33.0); MEAN CORPUSCULAR HGB CONC 34 g/dl (31.0-36.0); MEAN CORPUSCULAR VOLUME 85 fL (82-100); MONOCYTES # (AUTO) 0.5 K/uL (0.1-1.30); MONOCYTES % (AUTO) 9.1 % (2.0-12.0); NEUTROPHILS # (AUTO) 4.1 K/uL (1.8-8.9); NEUTROPHILS % (AUTO) 69.3 % (43.0-81.0); PLATELET COUNT (AUTO) 211 K/uL (150-450); RED BLOOD CELL COUNT(AUTO) 4.02 MIL/uL (4.0-5.2); RED CELL DISTRIBUTION WIDTH 16.1 % (11.5-15.0)
[2024-11-14] MEDS: SUMATRIPTAN SUCCINATE 6 MG/0.5 ML VIAL SQ ONE (20:19)
[2024-11-14 20:27] LABS: CALCIUM, SERUM 8.6 mg/dL (8.5-10.1); CREATININE 0.8 mg/dL (0.6-1.3); POTASSIUM 3.8 mmol/L (3.5-5.1)
[2024-11-14] MEDS: PROCHLORPERAZINE EDISYLATE 10 MG/2 ML VIAL IVP ONE (20:34)
[2024-11-14] MEDS ORDERED: SUMA100T PO (21:56)
[2024-11-14] MEDS ORDERED: KETO10TA2 PO (21:56)
[2024-11-14] MEDS ORDERED: PROC-11 PO (21:56)
[2024-11-14 22:19] VITALS: BP 156/65; O2SAT 98
== END 2024-11-14 22:17 | disposition home or self-care (01) ==
LOC: ER 19:44
DX: I10 Essential (primary) hypertension (principal); R51.9 Headache, unspecified; I48.91 Unspecified atrial fibrillation; M19.90 Unspecified osteoarthritis, unspecified site; Z79.02 Long term (current) use of antithrombotics/antiplatelets; Z79.621 Long term (current) use of calcineurin inhibitor; Z79.899 Other long term (current) drug therapy; Z88.0 Allergy status to penicillin; Z88.1 Allergy status to other antibiotic agents; Z90.49 Acquired absence of other specified parts of digestive tract; Z60.2 Problems related to living alone
CPT/HCPCS: 99285; 96374; 70450; 71045; 93005; 85025; 80048; 36415; 96372; J0780; J0360; J3030

== ENCOUNTER 2025-02-15 03:35 | Inpatient (IN) | payer MEDICARE, MEDICAID ==
[~2025-02-15] VITALS: Ht 165.1 cm; Wt 86.2 kg
[~2025-02-15 03:35] MED LIST changes: +KETO10TA2 PO; +PROC-11 PO; +SUMA100T PO
[2025-02-15] MEDS ORDERED: ONDANSETRON HCL/PF 4 MG/2 ML VIAL ONE (04:45)
[2025-02-15] MEDS ORDERED: MORPHINE SULFATE INJ 2 MG/ML DISP.SYRIN ONE (04:45)
[2025-02-15] MEDS: MORPHINE SULFATE INJ 2 MG/ML DISP.SYRIN IV ONE (04:50)
[2025-02-15] MEDS: ONDANSETRON HCL/PF 4 MG/2 ML VIAL IVP ONE (04:50)
[2025-02-15 05:54] LABS: BASOPHILS # (AUTO) 0.1 K/uL (0.0-0.2); BASOPHILS % (AUTO) 0.5 % (0.0-2.0); EOSINOPHILS # (AUTO) 0.1 K/uL (0.0-0.7); EOSINOPHILS % (AUTO) 0.8 % (0.0-6.0); HEMATOCRIT 37 % (33-45); HEMOGLOBIN 12.1 g/dL (11.5-14.8); LYMPHOCYTES # (AUTO) 0.9 K/uL (0.8-4.8); LYMPHOCYTES % (AUTO) 5.9 % (20.0-44.0); MEAN CORPUSCULAR HEMOGLOBIN 29 PG (26.0-33.0); MEAN CORPUSCULAR HGB CONC 33 g/dl (31.0-36.0); MEAN CORPUSCULAR VOLUME 87 fL (82-100); MONOCYTES # (AUTO) 0.9 K/uL (0.1-1.30); MONOCYTES % (AUTO) 5.9 % (2.0-12.0); NEUTROPHILS # (AUTO) 12.9 K/uL (1.8-8.9); NEUTROPHILS % (AUTO) 86.9 % (43.0-81.0); PLATELET COUNT (AUTO) 226 K/uL (150-450); RED BLOOD CELL COUNT(AUTO) 4.24 MIL/uL (4.0-5.2); RED CELL DISTRIBUTION WIDTH 15.1 % (11.5-15.0); WHITE BLOOD COUNT (AUTO) 14.8 K/uL (4.3-11.0)
[2025-02-15 06:13] LABS: ALANINE AMINOTRANSFERASE 35 U/L (12-78); ALBUMIN 3.7 g/dL (3.4-5.0); ALKALINE PHOSPHATASE 68 U/L (46-116); ASPARTATE AMINOTRANSFERASE 33 U/L (15-37); BILIRUBIN,DIRECT 0.2 mg/dL (0.0-0.2); BILIRUBIN,TOTAL 0.7 mg/dL (0.2-1.0); CALCIUM, SERUM 8.8 mg/dL (8.5-10.1); CARBON DIOXIDE 26 mmol/L (21-32); CHLORIDE 103 mmol/L (98-107); CREATININE 0.7 mg/dL (0.6-1.3); GLUCOSE 148 mg/dL (74-106); LIPASE 20 U/L (16-77); POTASSIUM 3.7 mmol/L (3.5-5.1); SODIUM SERUM 139 mmol/L (136-145); TOTAL PROTEIN, SERUM 6.8 g/dL (6.4-8.2); UREA NITROGEN, BLOOD 16 mg/dL (7-18)
[2025-02-15] MEDS ORDERED: CIPROFLOXACIN IV RTU 200 ML IV ONE (06:28)
[2025-02-15] MEDS ORDERED: METRONIDAZOLE 500MG/ NS 100ML 100 ML IV ONE (06:28)
[2025-02-15] MEDS: CIPROFLOXACIN IV RTU 400 MG in PREMIX 1 EA IV ONE (06:32)
[2025-02-15] MEDS: FLAGYL/NS RTU 500 MG/100 ML PIGGYBACK IV ONE (06:32)
[2025-02-15 06:52] LABS: APPEARANCE,URINE CLEAR (CLEAR); BILIRUBIN,URINE NEGATIVE (NEGATIVE); BLOOD, URINE TRACE-INTA Ery/uL (NEGATIVE); COLOR,URINE YELLOW (YELLOW); KETONES,URINE NEGATIVE (NEGATIVE); LEUKOCYTE ESTERASE ,URINE NEGATIVE (NEGATIVE); NITRITE, URINE NEGATIVE (NEGATIVE); PROTEIN,URINE NEGATIVE (NEGATIVE); UGLUCOSE NEGATIVE (NEGATIVE); UROBILINOGEN,URINE 0.2 EU/dL (0.2)
[2025-02-15] MEDS ORDERED: MAGNESIUM HYDROXIDE 30 ML UDC PO PRN (07:00)
[2025-02-15] MEDS ORDERED: MAG HYDROX/AL HYDROX/SIMETH 30 ML UDC PO PRN (07:00)
[2025-02-15 07:09] LABS: ADD URINE CULTURE NO; BACTERIA,URINE None seen /HPF (None Seen); RBC,URINE 0-2 /HPF (0-2); SQUAMOUS EPITHELIAL CELL,UR 0-2 /HPF (None Seen); WBC,URINE 0-2 /HPF (0-3)
[2025-02-15] MEDS ORDERED: PANTOPRAZOLE 40 MG TABLET.DR PO SCH (07:30)
[2025-02-15] MEDS ORDERED: SACU1TAB PO (08:19)
[2025-02-15] MEDS ORDERED: AMIO100T PO (08:19)
[2025-02-15] MEDS ORDERED: ERGO500093 PO (08:19)
[2025-02-15] MEDS ORDERED: NITROGLYCERIN 0.4 MG/TAB BOTTLE SL PRN (09:00)
[2025-02-15] MEDS: PANTOPRAZOLE 40 MG TABLET.DR PO SCH (09:07)
[2025-02-15] MEDS: ATORVASTATIN 40 MG TABLET PO SCH (09:07)
[2025-02-15] MEDS: CARVEDILOL 6.25 MG TABLET PO SCH (09:07)
[2025-02-15] MEDS: CLOPIDOGREL BISULFATE 75 MG TABLET PO SCH (09:07)
[2025-02-15] MEDS: FUROSEMIDE 40 MG TABLET PO SCH (09:08)
[2025-02-15] MEDS: AMIODARONE HCL 200 MG TABLET PO SCH (09:08)
[2025-02-15] MEDS: SACUBITRIL/VALSARTAN 24/26MG TABLET PO SCH (09:08)
[2025-02-15] MEDS: CLONIDINE HCL 0.1 MG TABLET PO SCH (09:20)
[2025-02-15] MEDS: ONDANSETRON HCL/PF 4 MG/2 ML VIAL IVP PRN (09:30)
[2025-02-15] MEDS: MORPHINE SULFATE INJ 2 MG/ML DISP.SYRIN IV PRN (10:46)
[2025-02-15 11:35] VITALS: BP 143/37; TEMP 97.2; O2SAT 98
[2025-02-15] MEDS: METRONIDAZOLE 500MG/ NS 100ML 500 MG in PREMIX 1 EA IV SCH (15:32)
[2025-02-15 16:00] VITALS: BP 115/43; TEMP 97.3; O2SAT 98
[2025-02-15 18:00] VITALS: BP 132/41; TEMP 97.7; O2SAT 95
[2025-02-15] MEDS: DICYCLOMINE HCL 10 MG CAPSULE PO SCH (18:08)
[2025-02-15] MEDS: Z GUARD REMEDY 4 OZ OINT TP PRN (18:08)
[2025-02-15] MEDS: CIPROFLOXACIN IV RTU 400 MG in PREMIX 1 EA IV SCH (19:31)
[2025-02-15 20:00] VITALS: BP 154/50; TEMP 97.3; O2SAT 95
[2025-02-15] MEDS: DOXAZOSIN MESYLATE (1 MG) 1 MG TABLET PO SCH (22:42)
[2025-02-16] VITALS: BP 156/61; TEMP 98.4; O2SAT 97
[2025-02-16 04:00] VITALS: BP 141/40; TEMP 98.2; O2SAT 96
[2025-02-16 06:33] LABS: BASOPHILS % (AUTO) 0.6 % (0.0-2.0); EOSINOPHILS # (AUTO) 0.1 K/uL (0.0-0.7); EOSINOPHILS % (AUTO) 2.5 % (0.0-6.0); HEMATOCRIT 32 % (33-45); HEMOGLOBIN 10.9 g/dL (11.5-14.8); LYMPHOCYTES # (AUTO) 1.2 K/uL (0.8-4.8); LYMPHOCYTES % (AUTO) 21.9 % (20.0-44.0); MEAN CORPUSCULAR HEMOGLOBIN 29 PG (26.0-33.0); MEAN CORPUSCULAR HGB CONC 34 g/dl (31.0-36.0); MEAN CORPUSCULAR VOLUME 87 fL (82-100); MONOCYTES # (AUTO) 0.4 K/uL (0.1-1.30); MONOCYTES % (AUTO) 8.2 % (2.0-12.0); NEUTROPHILS # (AUTO) 3.6 K/uL (1.8-8.9); NEUTROPHILS % (AUTO) 66.8 % (43.0-81.0); PLATELET COUNT (AUTO) 173 K/uL (150-450); RED BLOOD CELL COUNT(AUTO) 3.75 MIL/uL (4.0-5.2); RED CELL DISTRIBUTION WIDTH 15.3 % (11.5-15.0); WHITE BLOOD COUNT (AUTO) 5.4 K/uL (4.3-11.0)
[2025-02-16 08:00] VITALS: BP 134/45; TEMP 97.7; O2SAT 96
[2025-02-16 08:08] LABS: CALCIUM, SERUM 8.6 mg/dL (8.5-10.1); CREATININE 0.8 mg/dL (0.6-1.3); MAGNESIUM 2.3 mg/dL (1.8-2.4); PHOSPHORUS 3.9 mg/dL (2.5-4.9); POTASSIUM 4.1 mmol/L (3.5-5.1)
[2025-02-16] MEDS ORDERED: DIATR MEGLU/DIATRIZOATE SODIUM 120 ML BOTTLE (GASTROGRAPHIN) ONE (09:11)
[2025-02-16] MEDS ORDERED: METR500T PO (11:43)
[2025-02-16] MEDS ORDERED: SIME80TA15 PO (11:43)
[2025-02-16] MEDS ORDERED: CIPR-262 PO (11:43)
[2025-02-16] MEDS ORDERED: PANT40TA2 PO (11:43)
[2025-02-16] MEDS: ACETAMINOPHEN 325 MG TABLET PO PRN (14:10)
[2025-02-16 16:13] VITALS: BP 130/54
== END 2025-02-16 17:40 | disposition home or self-care (01) | DRG 392 ==
LOC: ER 03:40 → TELE1 08:35 → TELE 11:48 → MED 02-16 09:19
PROVIDERS: ADMIT Nurse Practitioner Family; ATTEND Nurse Practitioner Family
DX: A08.4 Viral intestinal infection, unspecified (principal); D50.9 Iron deficiency anemia, unspecified; E78.5 Hyperlipidemia, unspecified; I25.10 Atherosclerotic heart disease of native coronary artery without angina pectoris; I48.91 Unspecified atrial fibrillation; Z88.0 Allergy status to penicillin; Z79.899 Other long term (current) drug therapy; R07.89 Other chest pain; D72.829 Elevated white blood cell count, unspecified; I10 Essential (primary) hypertension; R10.9 Unspecified abdominal pain
CPT/HCPCS: 36415; 71045-TC; 74250-TC; 80048-TC; 80061-TC; 80076-TC; 81001; 83605-TC; 83690-TC; 83735-TC; 84100-TC; 84484-TC; 85025-TC; 87040-TC; 87086-TC; 93307-TC; A4216; A4223; G0378; J0744; J2270; J2405; J7050; Q9963

== ENCOUNTER 2025-08-12 02:58 | Emergency (ER) | payer MEDICARE, OTHER ==
[~2025-08-12] VITALS: Ht 165.1 cm; Wt 90.7 kg
[~2025-08-12 02:58] MED LIST changes: +AMIO100T PO; -AMIO200T5 PO; -AZIL80TA PO; -CHOL500052 PO; +CIPR-262 PO; +ERGO500093 PO; -HYDR-4076 PO; -HYDR25TA4 PO; -KETO10TA2 PO; +METR500T PO; +PANT40TA2 PO; -PROC-11 PO; +SACU1TAB PO; +SIME80TA15 PO; -SUMA100T PO
[2025-08-12 03:06] VITALS: TEMP 98.3
[2025-08-12] MEDS ORDERED: ASPIRIN 325 MG TABLET ONE (03:09)
[2025-08-12] MEDS: ASPIRIN 325 MG TABLET PO ONE (03:13)
[2025-08-12] MEDS ORDERED: MAG HYDROX/AL HYDROX/SIMETH 30 ML UDC ONE (03:22)
[2025-08-12] MEDS ORDERED: LIDOCAINE VISCOUS 2% UD 15 ML UDC ONE (03:22)
[2025-08-12] MEDS: LIDOCAINE VISCOUS 2% UD 15 ML UDC MM ONE (03:47)
[2025-08-12] MEDS: MAG HYDROX/AL HYDROX/SIMETH 30 ML UDC PO ONE (03:47)
[2025-08-12 03:53] LABS: PLATELET COUNT (AUTO) 193 K/uL (150-450); RED BLOOD CELL COUNT(AUTO) 4.18 MIL/uL (4.0-5.2); RED CELL DISTRIBUTION WIDTH 15.5 % (11.5-15.0); WHITE BLOOD COUNT (AUTO) 7.3 K/uL (4.3-11.0)
[2025-08-12 04:04] LABS: CALCIUM, SERUM 8.6 mg/dL (8.5-10.1); CREATININE 0.7 mg/dL (0.6-1.3); SODIUM SERUM 138 mmol/L (136-145); UREA NITROGEN, BLOOD 20 mg/dL (7-18)
[2025-08-12 04:10] LABS: INR 1.03 (0.91-1.10)
[2025-08-12 08:55] VITALS: BP 142/65; O2SAT 96
== END 2025-08-12 08:30 | disposition home or self-care (01) ==
LOC: ER 03:02
DX: R07.89 Other chest pain (principal); I11.9 Hypertensive heart disease without heart failure; Z79.02 Long term (current) use of antithrombotics/antiplatelets; Z79.621 Long term (current) use of calcineurin inhibitor; Z79.899 Other long term (current) drug therapy; Z88.0 Allergy status to penicillin; Z88.1 Allergy status to other antibiotic agents; Z90.49 Acquired absence of other specified parts of digestive tract
CPT/HCPCS: 36415; 71045-TC; 80048-TC; 84484-TC; 85025-TC; 85730-TC